=== PATIENT | female | born 1985 | race Caucasian/White ===

== ENCOUNTER 2022-10-29 13:10 | Outpatient (CLI) | payer OTHER, SELFPAY ==
[2022-10-29 22:01] LABS: Cholesterol* 185 mg/dL (90-199)
[2022-10-29 22:02] LABS: HDL Cholesterol* 56 mg/dL (>=50); LDL Cholesterol Calculated 107 mg/dL (<100); Triglycerides* 112 mg/dL (40-149)
== END 2022-10-29 13:11 | disposition home or self-care (01) ==
PROVIDERS: PCP Physician Assistant Medical; Visit Provider Physician Assistant Medical
DX: Z00.00 Encounter for general adult medical examination without abnormal findings (principal); Z13.6 Encounter for screening for cardiovascular disorders; Z13.29 Encounter for screening for other suspected endocrine disorder
CPT/HCPCS: 80061; 82652; 84443

== ENCOUNTER 2023-12-11 13:34 | Outpatient (CLI) | payer OTHER, SELFPAY ==
[2023-12-11 22:55] LABS: Chlamydia DNA Amplified* NOT DETECTED (No Detected); GC DNA Amplified* NOT DETECTED (No Detected)
== END 2023-12-11 13:35 | disposition home or self-care (01) ==
PROVIDERS: PCP Physician Assistant Medical; Visit Provider Physician Assistant Medical
DX: Z00.00 Encounter for general adult medical examination without abnormal findings (principal); L65.9 Nonscarring hair loss, unspecified; N91.2 Amenorrhea, unspecified; Z11.3 Encounter for screening for infections with a predominantly sexual mode of transmission; Z13.1 Encounter for screening for diabetes mellitus; Z13.29 Encounter for screening for other suspected endocrine disorder; Z13.0 Encounter for screening for diseases of the blood and blood-forming organs and certain disorders involving the immune mechanism
CPT/HCPCS: 80053; 80061; 82306; 82627; 82670; 82728; 83498; 84403; 84443; 87491; 87591

== ENCOUNTER 2024-01-06 14:08 | Outpatient (CLI) | payer OTHER, SELFPAY ==
[2024-01-06 22:05] LABS: Bacterial Vaginosis* DETECTED (No Detected); Candida glab/krus Not Detected (No Detected); Candida species DETECTED (No Detected); Trichomonas vaginalis Not Detected (No Detected)
== END 2024-01-06 14:09 | disposition home or self-care (01) ==
LOC: NFLDREF 16:31
PROVIDERS: PCP Physician Assistant Medical; Visit Provider Obstetrics & Gynecology
DX: N93.9 Abnormal uterine and vaginal bleeding, unspecified (principal); N76.0 Acute vaginitis; B37.31 Acute candidiasis of vulva and vagina
CPT/HCPCS: 81513; 87481; 87661

== ENCOUNTER 2025-01-18 13:36 | Outpatient (CLI) | payer OTHER, SELFPAY | END 2025-01-18 13:37 | disposition home or self-care (01) | PROVIDERS: PCP Physician Assistant Medical; Visit Provider Physician Assistant Medical | DX: R79.89 Other specified abnormal findings of blood chemistry (principal); E07.89 Other specified disorders of thyroid; Z13.220 Encounter for screening for lipoid disorders; Z13.21 Encounter for screening for nutritional disorder | CPT/HCPCS: 80053; 80061; 82306; 82670; 83001; 83735; 84403; 84443; 84630; 86376 ==

== ENCOUNTER 2025-02-02 10:31 | Outpatient (CLI) | payer OTHER, SELFPAY ==
--- NOTE | 2025-02-02 10:45 | CRLHL7_ITS ---
For Patients: As a result of the Cures Act, medical imaging exams and procedure reports are released immediately into your electronic medical record. You may view this report before your referring provider. If you have questions, please contact your health care provider. DIGITAL DIAGNOSTIC BILATERAL MAMMOGRAM USING TOMOSYNTHESIS AND COMPUTER-AIDED DETECTION LEFT BREAST ULTRASOUND CLINICAL HISTORY: LEFT breast lump. COMPARISON: None. TECHNIQUE: Digital BILATERAL mammogram in four projections with computer-aided detection. Tomosynthesis was used in this interpretation. Real-time ultrasound imaging of LEFT breast with imaging documentation. BREAST COMPOSITION: The breasts are heterogeneously dense, which may obscure small masses. FINDINGS: 3D CC/MLO BILATERAL mammogram images submitted. No suspicious mass or architectural distortion. No suspicious calcifications or adenopathy. Targeted ultrasound LEFT breast 9 o`clock 2 cm from the nipple performed. In this location, there is an island of fibroglandular tissue. No suspicious mass. No fibrocystic change. IMPRESSION: No evidence of malignancy. RECOMMENDATIONS: Age-appropriate screening mammography. A lay language report of this examination will be provided to the patient. BI-RADS Category 1: Negative Dictated by Musa Alford MD @ 02/02/2025 11:25:12 AM jj/Dictated by: Musa Alford MD @ 02/02/2025 11:25:00 AM (Electronically Signed)
== END 2025-02-02 10:32 | disposition home or self-care (01) ==
LOC: MAMMO 10:31
PROVIDERS: PCP Physician Assistant Medical; Visit Provider Physician Assistant Medical
DX: N63.20 Unspecified lump in the left breast, unspecified quadrant (principal)
CPT/HCPCS: 76642; 77066; G0279

== ENCOUNTER 2025-02-09 10:40 | Outpatient (CLI) | payer OTHER, SELFPAY | END 2025-02-09 10:41 | disposition home or self-care (01) | LOC: US 10:41 | PROVIDERS: PCP Physician Assistant Medical; Visit Provider Physician Assistant Medical | DX: R79.89 Other specified abnormal findings of blood chemistry (principal); E28.2 Polycystic ovarian syndrome; E07.89 Other specified disorders of thyroid | CPT/HCPCS: 76536; 76830; 76856 ==